=== PATIENT | male | born 1995 | race Caucasian/White ===

== ENCOUNTER 2020-05-27 15:24 | Emergency (ER) | payer OTHER ==
--- NOTE | 2020-05-27 15:40 | ERPHSYRPT ---
- History of Present Illness Source: patient Exam Limitations: no limitations Patient Subjective Stated Complaint: pt states a 10 lb rotor fell on hes left foot at work today, co pain to top of foot Triage Nursing Assessment: pt alert, walked in with a limp. resp easy,mask in place, has reddness to top of foot, ice applied Physician History: 25 yo wm w L foot pain after brake rotor fell on foot while working at [employer]. Pt denies other/previous injuries. Pain is 4/10. Method of Injury: direct blow Occurred: just prior to arrival Quality: constant Severity of Pain-Max: moderate (4/10) Lower Extremities Pain: foot: left Modifying Factors: Improves With: nothing Associated Symptoms: No unable to bear weight, No dizzy, No fainted, No seizure, No snapping sensation, No popping sensation Allergies/Adverse Reactions: No Known Drug Allergies Allergy (Unverified 05/27/20 15:32) Hx Influenza Vaccination/Date Given: No Hx Pneumococcal Vaccination/Date Given: No Immunizations Up to Date: Yes Travel Risk - International Travel Have you traveled outside of the country in past 3 weeks: No - Coronavirus Screening Are you exhibiting any of the following symptoms?: No Close contact with a COVID-19 positive Pt in past 14-21 Days: No - Review of Systems Constitutional: No Symptoms Eyes: No Symptoms Ears, Nose, & Throat: No Symptoms Respiratory: No Symptoms Cardiac: No Symptoms Abdominal/Gastrointestinal: No Symptoms Genitourinary Symptoms: No Symptoms Skin: No Symptoms Neurological: No Symptoms Psychological: No Symptoms Endocrine: No Symptoms Hematologic/Lymphatic: No Symptoms Immunological/Allergic: No Symptoms - Past Medical History Pertinent Past Medical History: No Neurological History: No Pertinent History ENT History: No Pertinent History Cardiac History: No Pertinent History Respiratory History: No Pertinent History Endocrine Medical History: No Pertinent History Musculoskeletal History: No Pertinent History GI Medical History: No Pertinent History History: No Pertinent History Psycho-Social History: No Pertinent History Male Reproductive Disorders: No Pertinent History - Past Surgical History Past Surgical History: No - Social History Smoking Status: Never smoker Exposure to second hand smoke: No Drug Use: marijuana Patient Lives Alone: No - Nursing Vital Signs Nursing Vital Signs: Initial Vital Signs Pulse Rate 81 05/27/20 16:13 Respiratory Rate 18 05/27/20 16:13 Blood Pressure 138/92 05/27/20 16:13 O2 Sat by Pulse Oximetry 97 05/27/20 16:13 Pain Scale Pain Intensity 4 - Physical Exam General Appearance: no apparent distress Eyes, Ears, Nose, Throat Exam: normal ENT inspection Neck Exam: normal inspection, non-tender Cardiovascular/Respiratory Exam: normal breath sounds, regular rate/rhythm, heart sounds normal Gastrointestinal/Abdominal Exam: non-tender, soft Back Exam: normal inspection, normal range of motion, No CVA tenderness, No vertebral tenderness Hips Exam: bilateral: non-tender, normal inspection, normal range of motion, no evidence of injury Legs Exam: bilateral leg: non-tender, normal inspection, normal range of motion, no evidence of injury Knees Exam: bilateral knee: non-tender, normal inspection, normal range of motion, no evidence of injury Ankle Exam: bilateral ankle: non-tender, normal inspection, normal range of motion, no evidence of injury Foot Exam: left foot: bone tenderness (L dorsal foot w mild TTP w mild erythema/no edema/No deformity/good pedal pulse, distal sensation, and capillary return) Neuro/Tendon Exam: normal sensation, normal motor functions, normal tendon functions, responds to pain, no evidence tendon injury, No motor deficit, No sensory deficit Mental Status Exam: alert, oriented x 3, cooperative Skin Exam: normal color, warm, dry, No rash - Radiology Exams Foot X-ray Interpretation: Interpreted by me (L foot neg) Ordered Tests: Active Orders 24 hr Category Date Time Status Gurvinder Bandage Application -[facility] STAT Care 05/27/20 15:50 Completed FOOT (MINIMUM 3 VIEWS) Stat Exams 05/27/20 15:41 Completed - Progress Progress: unchanged Progress Note: 05/27/20 15:50 Pt refused IM toradol Counseled pt/family regarding: rad results - Departure Departure Disposition: Home Clinical Impression: Contusion of foot, left Condition: Stable Critical Care Time: No Referrals: DOCTOR,NO FAMILY [Primary Care Provider] - Instructions: Contusion (DC) Additional Instructions: Ice for 12-24 hours Lodine as needed for pain Gurvinder wrap for 3-4 days Follow up with family MD as needed Weight bearing as tolerated Prescriptions: Etodolac 400 mg [Lodine 400 mg] 400 mg PO BIDPRN PRN #10 tablet PRN Reason: Pain
--- NOTE | 2020-05-27 16:03 | XRAY ---
Exam: 3 view left foot series from 05/27/2020. Comparison: None. Indication: 25-year-old male dropped wheel rotor on top of left foot at work, complains of pain. Findings: AP, oblique, and lateral radiographs of the left foot were obtained. I see no acute fracture or dislocation of the left foot. There is a normal plantar arch. No radiopaque soft tissue foreign body is seen. The joint spaces appear unremarkable. Impression: 1. No acute fracture or dislocation of the left foot is seen.
[2020-05-27 16:16] VITALS: BP 138/92; PULSE 81; O2SAT 97
== END 2020-05-27 16:15 | disposition home or self-care (01) ==
LOC: ED 15:24
DX: S90.32XA Contusion of left foot, initial encounter (principal); W22.8XXA Striking against or struck by other objects, initial encounter; Y93.89 Activity, other specified; Y92.414 Local residential or business street as the place of occurrence of the external cause; Y99.0 Civilian activity done for income or pay
CPT/HCPCS: 73630; 99283